=== PATIENT | female | born 1980 | race African-American/Black ===

== ENCOUNTER 2020-12-17 12:55 | Emergency (ER) | payer SELFPAY ==
[~2020-12-17] VITALS: Ht 167.6 cm; Wt 63.0 kg
--- NOTE | 2020-12-17 13:09 | NUR ---
Patient ambulated to bed 9. RN evaluating the patient at bedside.
[2020-12-17 13:12] VITALS: BP 140/82
--- NOTE | 2020-12-17 13:21 | NUR ---
RENE Waldrop is evaluating the patient at bedside.
--- NOTE | 2020-12-17 13:22 | NUR ---
40 Y/O FEMALE C/O GENERAL WEAKNESS X 1DAY. PT STATES SHE TOOK HER DILANTIN LAST NIGHT AND UNABLE TO RECALL HER LAST SEIZURE. IN ED, VSS. AOX4. NORMAL HEART RATE REGULAR RHYTHM. CLEAR BREATH SOUNDS. ABDOMEN SOFT, NONTENDER. BS 129. PMH: DM, SEIZURES RX: DILANTIN 300MG PO BID NKA
[2020-12-17] MEDS ORDERED: PHENYTOIN 100 MG CAPER PO ONE (13:25)
[2020-12-17] MEDS ORDERED: PHEN100C3 PO (13:33)
--- NOTE | 2020-12-17 13:50 | NUR ---
Patient discharged with v/s stable. Written and verbal after care instructions about medicine refill given and explained. Patient alert, oriented and verbalized understanding of instructions. Ambulatory with steady gait. All questions addressed prior to discharge. ID band removed. Patient advised to follow up with PMD. Rx of dilantin given. Patient educated on indication of medication including possible reaction and side effects. Opportunity to ask questions provided and answered.
[2020-12-17 13:51] VITALS: BP 140/82
== END 2020-12-17 13:50 | disposition home or self-care (01) ==
LOC: MED 12:55
DX: R56.9 Unspecified convulsions (principal); E11.9 Type 2 diabetes mellitus without complications; Z76.0 Encounter for issue of repeat prescription
CPT/HCPCS: 99283